=== PATIENT | female | born 1985 | race Caucasian/White ===

== ENCOUNTER 2017-06-10 18:33 | Emergency (ER) | payer BC ==
[2017-06-10 20:55] VITALS: BP 111/67
--- NOTE | 2017-06-10 20:56 | EDM.PDOC ---
ED HPI GENERAL MEDICAL PROBLEM - General Chief Complaint: Genitourinary Problem Stated Complaint: INFECTION/CLAMMY/NOT WELL Time Seen by Provider: 06/10/17 19:49 Source of Information: Reports: Patient History Limitations: Reports: No Limitations - History of Present Illness INITIAL COMMENTS - FREE TEXT/NARRATIVE: History of present illness: [This is an unfortunate 31-year-old female who is in process of being worked up at [facility] for right flank pain that radiates into her groin. This been going on for quite some time now and she does have an appointment to follow-up with them June 15 through the . The planning to do cystourogram and CT to try to continue to to investigate her problem. She has night sweats with this and just feels unwell and has moments when she has tender and lancinating pain that's in her right flank area. She's only been partially worked up and in the past as bends concerned that she is having UTIs with possible pilonidal but she's been treated for this and continues to have the pain. Most recently she was treated with minocycline and Macrobid. At this time she's not having any dysuria. 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 Past medical history: As per history of present illness and as reviewed below otherwise noncontributory. Surgical history: As per history of present illness and as reviewed below otherwise noncontributory. Social history: No reported history of drug or alcohol abuse. Family history: As per history of present illness and as reviewed below otherwise noncontributory. Physical exam: HEENT: Atraumatic, normocephalic, pupils reactive, negative for conjunctival pallor or scleral icterus, mucous membranes moist, throat clear, neck supple, nontender, trachea midline. Lungs: Clear to auscultation, breath sounds equal bilaterally, chest nontender. Heart: S1S2, regular, negative for clicks, rubs, or JVD. Abdomen: She has pain on palpation of the right flank and gutter area and along into the right lower quadrant. She does have some right-sided CVA tenderness Pelvis: Stable nontender. Genitourinary: Deferred. Rectal: Deferred. Extremities: Atraumatic, negative for cords or calf pain. Neurovascular unremarkable. Neuro: Awake, alert, oriented. Cranial nerves II through XII unremarkable. Cerebellum unremarkable. Motor and sensory unremarkable throughout. Exam nonfocal. Diagnostics: [CBC UA and complete medical panel are essentially unremarkable. She has some mild thrombocytopenia and elevation of her monocytes and eosinophils but these are all very nonspecific.] Therapeutics: [] Impression: [Right flank pain of uncertain etiology] Plan: [She will be following up in a few days at [place] for continued workup of her problem. We'll provide her with 12 [place] and I'm also going to put her on tapering doses of steroids just to see if that might help. We discussed that this is very nonspecific and that it may or may not help but it definitely does seem to help it might be helpful to [facility] to know that whatever is going on with her was steroid responsive.] Definitive disposition and diagnosis as appropriate pending reevaluation and review of above. right abdominal pain Pain Score (Numeric/FACES): 6 Past Medical History HEENT History: Reports: Impaired Vision Cardiovascular History: Reports: None Respiratory History: Reports: None Gastrointestinal History: Reports: Other (See Below) Other Gastrointestinal History: gastropathy. chronic vomiting Genitourinary History: Reports: Pyelonephritis, Renal Disease, UTI, Recurrent [employer]OR GROUNDS History: Reports: Musculoskeletal History: Reports: Fibromyalgia Neurological History: Reports: None Psychiatric History: Reports: Anxiety, Depression Endocrine/Metabolic History: Reports: None Hematologic History: Reports: None Immunologic History: Reports: None Oncologic (Cancer) History: Reports: None Dermatologic History: Reports: None - Infectious Disease History Infectious Disease History: Reports: Chicken Pox - Past Surgical History Head Surgeries/Procedures: Reports: None HEENT Surgical History: Reports: None Cardiovascular Surgical History: Reports: None Respiratory Surgical History: Reports: None GI Surgical History: Reports: Lysis of Adhesions Female Surgical History: Reports: Section, Cystectomy, Hysterectomy , Other (See Below) Other Female Surgeries/Procedures: reimplantation of bilateral ureters. uretral pelvic junction repair. pyeloplasty. removal of tissue from bladder. removal of right ovary, right and left falopian tubes, Patient still has left ovary Endocrine Surgical History: Reports: None Neurological Surgical History: Reports: None Musculoskeletal Surgical History: Reports: None Oncologic Surgical History: Reports: None Dermatological Surgical History: Reports: None Social & Family History - Tobacco Use Smoking Status *Q: Current Every Day Smoker Years of Tobacco use: 21 Packs/Tins Daily: 0.2 - Caffeine Use Caffeine Use: Reports: Coffee, Soda, Tea - Recreational Drug Use Recreational Drug Use: No ED ROS GENERAL - Review of Systems Review Of Systems: ROS reveals no pertinent complaints other than HPI. ED EXAM, GENERAL - Physical Exam Exam: See Below Course - Vital Signs Last Recorded V/S: Last Vital Signs Temp 37.3 C 06/10/17 19:38 Pulse 74 06/10/17 19:38 Resp 18 06/10/17 19:38 BP 140/76 06/10/17 19:38 Pulse Ox 100 06/10/17 19:38 - Orders/Labs/Meds Orders: Active Orders 24 hr Category Date Time Status CULTURE URINE [RM] Stat Lab 06/10/17 20:33 Uncollected Labs: Laboratory Tests 06/10/17 06/10/17 06/10/17 Range/Units 19:49 19:49 20:08 WBC 6.2 (4.5-11.0) K/uL RBC 4.22 (3.30-5.50) M/uL Hgb 12.7 (12.0-15.0) g/dL Hct 38.6 (36.0-48.0) % MCV 92 (80-98) fL MCH 30 (27-31) pg MCHC 33 (32-36) % Plt Count 140 L (150-400) K/uL Neut % (Auto) 62 (36-66) % Lymph % (Auto) 24 (24-44) % [place] % (Auto) 8 H (2-6) % Eos % (Auto) 6 H (2-4) % Baso % (Auto) 1 (0-1) % Sodium 139 L (140-148) mmol/L Potassium 3.9 (3.6-5.2) mmol/L Chloride 106 (100-108) mmol/L Carbon Dioxide 26 (21-32) mmol/L Anion Gap 10.9 (5.0-14.0) mmol/L BUN 12 (7-18) mg/dL Creatinine 1.0 (0.6-1.0) mg/dL Est Cr Clr Drug Dosing 74.91 mL/min Estimated GFR (MDRD) > 60 (>60) Glucose 87 (74-106) mg/dL Calcium 8.5 (8.5-10.1) mg/dL Total Bilirubin 0.4 (0.2-1.0) mg/dL AST 19 (15-37) U/L ALT 30 (12-78) U/L Alkaline Phosphatase 79 (46-116) U/L Total Protein 7.0 (6.4-8.2) g/dL Albumin 3.4 (3.4-5.0) g/dL Globulin 3.6 H (2.3-3.5) g/dL Albumin/Globulin Ratio 0.9 L (1.2-2.2) Urine Color Yellow Urine Appearance Clear Urine pH 6.0 (4.5-8.0) Ur Specific [place] 1.010 (1.008-1.030) Urine Protein Negative (NEGATIVE) mg/dL Urine Glucose (UA) Normal (NEGATIVE) mg/dL Urine Ketones Negative (NEGATIVE) mg/dL Urine Occult Blood Negative (NEGATIVE) Urine Nitrite Negative (NEGATIVE) Urine Bilirubin Negative (NEGATIVE) Urine Urobilinogen Normal (NORMAL) mg/dL Ur Leukocyte Esterase Negative (NEGATIVE) Urine RBC 0-5 (0-5) Urine WBC 0-5 (0-5) Ur Epithelial Cells Rare Amorphous Sediment Rare Urine Bacteria Not seen Urine Mucus Few Departure - Departure Time of Disposition: 20:55 Disposition: Home, Self-Care 01 Condition: Fair Clinical Impression: Right flank pain - Discharge Information Referrals: Skip Erickson MD [Primary Care Provider] - Additional Instructions: I'm sorry that you having this problem but I'm glad that sure being worked up at [place]. We will provide you with the pain medication and the steroids as we discussed with the understanding that the steroids may or may not help you at all but it I think at this point might be worth a trial. If it definitely seems to help you then you need to let your mail Dr. Jung that steroids helped your pain. This might help them in the process of trying to narrow things down and figure out what's going on causing her pain. - My Orders Last 24 Hours: My Active Orders 06/10/17 20:33 CULTURE URINE [RM] Stat - Assessment/Plan Last 24 Hours: My Active Orders 06/10/17 20:33 CULTURE URINE [RM] Stat
== END 2017-06-10 21:26 | disposition home or self-care (01) ==
LOC: JP.ED 18:33
DX: R10.9 Unspecified abdominal pain (principal); F17.210 Nicotine dependence, cigarettes, uncomplicated; Z87.440 Personal history of urinary (tract) infections; Z90.721 Acquired absence of ovaries, unilateral; Z98.890 Other specified postprocedural states
CPT/HCPCS: 36415; 80053; 81001; 85025; 87086; 99284

== ENCOUNTER 2017-06-11 13:13 | Emergency (ER) | payer BC ==
[2017-06-11] MEDS ORDERED: Sodium Chloride 0.9% 10 ML Syringe FLUSH PRN (14:50)
[2017-06-11] MEDS ORDERED: Ketorolac 30 MG/ML SDV IVPUSH ONE (14:50)
--- NOTE | 2017-06-11 14:56 | EDM.PDOC ---
ED HPI GENERAL MEDICAL PROBLEM - General Chief Complaint: Gastrointestinal Problem Stated Complaint: ABDOMNAL SORENESS; WEAKNESS Time Seen by Provider: 06/11/17 14:45 Source of Information: Reports: Patient History Limitations: Reports: No Limitations - History of Present Illness INITIAL COMMENTS - FREE TEXT/NARRATIVE: Zahida is a 31-year-old female who presents to the emergency department today with complaints of left upper quadrant pain. Patient reports that the pain is intense at times and feels like her insides are being ripped out. Patient has had a long-standing history of right flank pain and right abdominal pain which she has been worked up extensively for at [facility] with really no acute pathology found. Patient was seen at their facility on June 09 where blood work, urinalysis and renal stone CT scan were done which were all unremarkable. The patient was evaluated here yesterday as she felt she was being treated poorly at [facility], she was evaluated and discharged with a course of steroids to see if this helps the possibility of any inflammatory component. Patient does doctor at [facility] secondary to the fact that she has no clear answer for her pain, she has a follow-up appointment there on the . Patient reports the left upper quadrant pain started yesterday. Patient denies any fever or chills. Patient reports that today the severe pain is gone but she does endorse feeling "sore". Patient has not had any vomiting today.patient had a hysterectomy back in 2010, she reports a history of significant endometriosis prior to that. - Related Data Allergies Allergy/AdvReac Type Severity Reaction Status Date / Time ciprofloxacin [From Cipro] Allergy Numbness Verified 06/10/17 20:54 levofloxacin [From Levaquin] Allergy Numbness Verified 06/10/17 20:54 morphine Allergy Rash Verified 06/10/17 20:54 Sulfa (Sulfonamide Allergy Tachycardia Verified 06/10/17 20:54 Antibiotics) sulfamethoxazole Allergy Tachycardia Verified 06/10/17 20:54 [From Bactrim] tramadol Allergy Itching Verified 06/10/17 20:54 trimethoprim [From Bactrim] Allergy Tachycardia Verified 06/10/17 20:54 Home Meds: Home Meds Hydrocodone/Acetaminophen [Hydrocodon-Acetaminophen 5-325] 06/11/17 [History] predniSONE [Prednisone] 06/11/17 [History] Past Medical History HEENT History: Reports: Impaired Vision Cardiovascular History: Reports: None Respiratory History: Reports: None Gastrointestinal History: Reports: Other (See Below) Other Gastrointestinal History: gastropathy. 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: Musculoskeletal History: Reports: Fibromyalgia Neurological History: Reports: None Psychiatric History: Reports: Anxiety, Depression Endocrine/Metabolic History: Reports: None Hematologic History: Reports: None Immunologic History: Reports: None Oncologic (Cancer) History: Reports: None Dermatologic History: Reports: None - Infectious Disease History Infectious Disease History: Reports: Chicken Pox - Past Surgical History Head Surgeries/Procedures: Reports: None HEENT Surgical History: Reports: None Cardiovascular Surgical History: Reports: None Respiratory Surgical History: Reports: None GI Surgical History: Reports: Lysis of Adhesions Female Surgical History: Reports: Section, Cystectomy, Hysterectomy , Other (See Below) Other Female Surgeries/Procedures: reimplantation of bilateral ureters. uretral pelvic junction repair. pyeloplasty. removal of tissue from bladder. removal of right ovary, right and left falopian tubes, Patient still has left ovary Endocrine Surgical History: Reports: None Neurological Surgical History: Reports: None Musculoskeletal Surgical History: Reports: None Oncologic Surgical History: Reports: None Dermatological Surgical History: Reports: None Social & Family History - Tobacco Use Smoking Status *Q: Current Every Day Smoker Years of Tobacco use: 20 Packs/Tins Daily: 0.1 - Caffeine Use Caffeine Use: Reports: Coffee, Soda, Tea - Recreational Drug Use Recreational Drug Use: No ED ROS GENERAL - Review of Systems Review Of Systems: See Below Constitutional: Reports: Decreased Appetite HEENT: Reports: No Symptoms Respiratory: Reports: No Symptoms Cardiovascular: Reports: No Symptoms Endocrine: Reports: No Symptoms GI/Abdominal: Reports: Abdominal Pain, Anorexia, Nausea : Reports: Flank Pain Musculoskeletal: Reports: Back Pain Skin: Reports: No Symptoms Neurological: Reports: No Symptoms Psychiatric: Reports: No Symptoms Hematologic/Lymphatic: Reports: No Symptoms Immunologic: Reports: No Symptoms ED EXAM, GI/ABD - Physical Exam Exam: See Below Exam Limited By: No Limitations General Appearance: Alert, WD/WN, Anxious Throat/Mouth: Normal Inspection Head: Atraumatic Neck: Normal Inspection Respiratory/Chest: No Respiratory Distress, Lungs Clear, Normal Breath Sounds, No Accessory Muscle Use Cardiovascular: Normal Peripheral Pulses, Regular Rate, Rhythm, No Murmur GI/Abdominal Exam: Normal Bowel Sounds, Soft, No Distention, Tender (LUQ) Back Exam: Normal Inspection Extremities: Normal Inspection, Normal Range of Motion Neurological: Alert, Oriented, CN II-XII Intact Course - Vital Signs Last Recorded V/S: Last Vital Signs Temp 37.4 C 06/11/17 15:22 Pulse 69 06/11/17 15:22 Resp 16 06/11/17 15:22 BP 125/75 06/11/17 15:22 Pulse Ox 98 06/11/17 15:22 Zahida is a 31-year-old female with ongoing issues with abdominal pain. Patient has been evaluated for this now multiple times at [facility] and now our facility.patient has a follow-up appointment at [place] in the next week. workup today is negative for any acute findings which is consistent with the patient's prior workups. CBC, CMP, lipase are within normal limits. CT scan with contrast of abdomen and pelvis does not show any acute abnormalities to explain patient's left upper quadrant pain today. I did not repeat a urine sample today as patient has had several of these done over the last week. I feel patient is stable to be discharged home she can follow up with her appointment as scheduled, she can continue previously prescribed medications.I did discuss with patient the fact that she has had multiple CT scans, risks/ benefits were discussed with patient today, she did verbalize she wanted to proceed to make sure "nothing was wrong". I did reiterate to patient that multiple CT scans put her at higher risk for developing an acute intra- abdominal oncological process from repeated radiation exposure. Patient verbalizes understanding of this, reasons to return to the ED were discussed. Patient was agreeable discharged in stable condition. - Orders/Labs/Meds Orders: Active Orders 24 hr Category Date Time Status Peripheral IV Care [RC] . DIRECTED Care 06/11/17 14:50 Active Abdomen Pelvis w Cont [CT] Stat Exams 06/11/17 14:50 Taken Iopamidol [Isovue-300 (61%)] Med 06/11/17 15:32 Active 126 ml IV . DIRECTED PRN Sodium Chloride 0.9% [Normal Saline] 80 ml Med 06/11/17 15:45 Active IV ASDIRECTED Sodium Chloride 0.9% [Saline Flush] Med 06/11/17 14:50 Active 10 ml FLUSH ASDIRECTED PRN Peripheral IV Insertion Adult [OM.PC] Routine Oth 06/11/17 14:50 Ordered Medication Orders Sodium Chloride (Normal Saline) 80 mls @ 3.5 mls/sec IV ASDIRECTED ZANE Last Admin: 06/11/17 15:44 Dose: 3.5 mls/sec Iopamidol (Isovue-300 (61%)) 126 ml IV . DIRECTED PRN PRN Reason: RADIOLOGY EXAM Stop: 06/12/17 15:33 Last Admin: 06/11/17 15:44 Dose: 126 ml Sodium Chloride (Saline Flush) 10 ml FLUSH ASDIRECTED PRN PRN Reason: Keep Vein Open Last Admin: 06/11/17 15:21 Dose: 10 ml Labs: Laboratory Tests 06/11/17 06/11/17 Range/Units 15:02 15:02 WBC 10.0 (4.5-11.0) K/uL RBC 4.26 (3.30-5.50) M/uL Hgb 12.8 (12.0-15.0) g/dL Hct 39.2 (36.0-48.0) % MCV 92 (80-98) fL MCH 30 (27-31) pg MCHC 33 (32-36) % Plt Count 162 (150-400) K/uL Neut % (Auto) 74 H (36-66) % Lymph % (Auto) 17 L (24-44) % [place] % (Auto) 8 H (2-6) % Eos % (Auto) 2 (2-4) % Baso % (Auto) 0 (0-1) % Sodium 141 (140-148) mmol/L Potassium 3.7 (3.6-5.2) mmol/L Chloride 108 (100-108) mmol/L Carbon Dioxide 27 (21-32) mmol/L Anion Gap 5.7 (5.0-14.0) mmol/L BUN 11 (7-18) mg/dL Creatinine 1.1 H (0.6-1.0) mg/dL Est Cr Clr Drug Dosing TNP Estimated GFR (MDRD) 57 L (>60) Glucose 107 H (74-106) mg/dL Calcium 8.5 (8.5-10.1) mg/dL Total Bilirubin 0.2 (0.2-1.0) mg/dL AST 17 (15-37) U/L ALT 29 (12-78) U/L Alkaline Phosphatase 96 (46-116) U/L Total Protein 7.4 (6.4-8.2) g/dL Albumin 3.5 (3.4-5.0) g/dL Globulin 3.9 H (2.3-3.5) g/dL Albumin/Globulin Ratio 0.9 L (1.2-2.2) Lipase 106 (73-393) U/L Meds: Medications Generic Name Dose Route Start Last Admin Trade Name Freq PRN Reason Stop Dose Admin Sodium Chloride 80 mls @ 3.5 mls/sec 06/11/17 15:45 06/11/17 15:44 Normal Saline IV 3.5 mls/sec ASDIRECTED ZANE Administration Iopamidol 126 ml 06/11/17 15:32 06/11/17 15:44 Isovue-300 (61%) IV 06/12/17 15:33 126 ml . DIRECTED PRN Administration RADIOLOGY EXAM Sodium Chloride 10 ml 06/11/17 14:50 06/11/17 15:21 Saline Flush FLUSH 10 ml ASDIRECTED PRN Administration Keep Vein Open Discontinued Medications Generic Name Dose Route Start Last Admin Trade Name Pepitoq PRN Reason Stop Dose Admin Ketorolac Tromethamine 30 mg 06/11/17 14:50 06/11/17 15:20 Toradol IVPUSH 06/11/17 14:51 30 mg ONETIME ONE Administration Sodium Chloride 10 ml 06/11/17 15:32 06/11/17 15:43 Saline Flush FLUSH 06/11/17 15:33 10 ml ONETIME ONE Administration Departure - Departure Time of Disposition: 17:00 Disposition: Home, Self-Care 01 Condition: Good Clinical Impression: Left upper quadrant abdominal pain of unknown etiology - Discharge Information Referrals: Skip Erickson MD [Primary Care Provider] - Forms: ED Department Discharge Additional Instructions: Continue medications as previously prescribed. Follow-up at her clinic appointment with [facility] as scheduled Take care and good luck with everything. - My Orders Last 24 Hours: My Active Orders 06/11/17 14:50 Peripheral IV Care [RC] . DIRECTED Abdomen Pelvis w Cont [CT] Stat Sodium Chloride 0.9% [Saline Flush] 10 ml FLUSH ASDIRECTED PRN Peripheral IV Insertion Adult [OM.PC] Routine 06/11/17 15:32 Iopamidol [Isovue-300 (61%)] 126 ml IV . DIRECTED PRN 06/11/17 15:45 Sodium Chloride 0.9% [Normal Saline] 80 ml IV ASDIRECTED - Assessment/Plan Last 24 Hours: My Active Orders 06/11/17 14:50 Peripheral IV Care [RC] . DIRECTED Abdomen Pelvis w Cont [CT] Stat Sodium Chloride 0.9% [Saline Flush] 10 ml FLUSH ASDIRECTED PRN Peripheral IV Insertion Adult [OM.PC] Routine 06/11/17 15:32 Iopamidol [Isovue-300 (61%)] 126 ml IV . DIRECTED PRN 06/11/17 15:45 Sodium Chloride 0.9% [Normal Saline] 80 ml IV ASDIRECTED
[2017-06-11 15:23] VITALS: BP 125/75
[2017-06-11] MEDS ORDERED: Iopamidol 612 MG/ML 150 ML Bottle IV PRN (15:32)
[2017-06-11] MEDS ORDERED: Sodium Chloride 0.9% 10 ML Syringe FLUSH ONE (15:32)
[2017-06-11] MEDS ORDERED: Sodium Chloride 0.9% 80 ML IV SCH (15:45)
== END 2017-06-11 16:50 | disposition home or self-care (01) ==
LOC: JP.ED 13:13
DX: R10.12 Left upper quadrant pain (principal); F17.210 Nicotine dependence, cigarettes, uncomplicated; Z87.440 Personal history of urinary (tract) infections; Z88.5 Allergy status to narcotic agent; Z88.1 Allergy status to other antibiotic agents; Z90.710 Acquired absence of both cervix and uterus; Z98.890 Other specified postprocedural states; Z88.2 Allergy status to sulfonamides
CPT/HCPCS: 36415; 74177; 80053; 83690; 85025; 96374; 99285; J1885; J7030; J7050

== ENCOUNTER 2017-12-17 13:55 | Emergency (ER) | payer BC ==
[2017-12-17 14:18] VITALS: BP 141/96
--- NOTE | 2017-12-17 14:32 | EDM.PDOC ---
ED HPI GENERAL MEDICAL PROBLEM - General Chief Complaint: Fever Stated Complaint: FATIGUE/ILL Time Seen by Provider: 12/17/17 14:32 Source of Information: Reports: Patient History Limitations: Reports: No Limitations - History of Present Illness INITIAL COMMENTS - FREE TEXT/NARRATIVE: 32-year-old female, generalized illness for the last 4 days including night sweats, intermittent fevers, generalized achiness and fatigue. She was treated for strep throat 3 weeks ago, thought she had it completely treated. She has no specific symptoms such as nasal congestion, significant sore throat, shortness of breath, rash, dysuria, or GI symptoms. She does have a dry cough, mainly she is just very tired and ill feeling. Onset: Gradual Severity: Mild Associated Symptoms: Reports: Cough (Dry cough), Fever/Chills, Headaches ( Headache this morning), Malaise, Weakness. Denies: Chest Pain - Related Data Allergies Allergy/AdvReac Type Severity Reaction Status Date / Time ciprofloxacin [From Cipro] Allergy Numbness Verified 12/17/17 14:06 levofloxacin [From Levaquin] Allergy Numbness Verified 12/17/17 14:06 morphine Allergy Rash Verified 12/17/17 14:06 Sulfa (Sulfonamide Allergy Tachycardia Verified 12/17/17 14:06 Antibiotics) sulfamethoxazole Allergy Tachycardia Verified 12/17/17 14:06 [From Bactrim] tramadol Allergy Itching Verified 12/17/17 14:06 trimethoprim [From Bactrim] Allergy Tachycardia Verified 12/17/17 14:06 Home Meds: Home Meds DULoxetine [Cymbalta] 1 tab PO DAILY 12/17/17 [History] Gabapentin [Neurontin] 1 tab PO TID 12/17/17 [History] Ondansetron [Zofran ODT] 1 tab PO TID PRN 12/17/17 [History] Prazosin HCl [Prazosin] 2 tab PO BEDTIME 12/17/17 [History] Promethazine [Phenergan] 1 tab PO BEDTIME 12/17/17 [History] QUEtiapine [SEROquel] 1 tab PO BEDTIME 12/17/17 [History] buPROPion [Wellbutrin SR] 4 tab PO DAILY 12/17/17 [History] Past Medical History HEENT History: Reports: Impaired Vision Cardiovascular History: Reports: None Respiratory History: Reports: None Gastrointestinal History: Reports: Other (See Below) Other Gastrointestinal History: gastropathy. chronic vomiting Genitourinary History: Reports: Pyelonephritis, Renal Disease, UTI, Recurrent [employer] History: Reports: Musculoskeletal History: Reports: Fibromyalgia Neurological History: Reports: None Psychiatric History: Reports: Anxiety, Depression Endocrine/Metabolic History: Reports: None Hematologic History: Reports: None Immunologic History: Reports: None Oncologic (Cancer) History: Reports: None Dermatologic History: Reports: None - Infectious Disease History Infectious Disease History: Reports: Chicken Pox - Past Surgical History Head Surgeries/Procedures: Reports: None HEENT Surgical History: Reports: None Cardiovascular Surgical History: Reports: None Respiratory Surgical History: Reports: None GI Surgical History: Reports: Lysis of Adhesions Female Surgical History: Reports: Section, Cystectomy, Hysterectomy , Other (See Below) Other Female Surgeries/Procedures: reimplantation of bilateral ureters. uretral pelvic junction repair. pyeloplasty. removal of tissue from bladder. removal of right ovary, right and left falopian tubes, Patient still has left ovary Endocrine Surgical History: Reports: None Neurological Surgical History: Reports: None Musculoskeletal Surgical History: Reports: None Oncologic Surgical History: Reports: None Dermatological Surgical History: Reports: None Social & Family History - Tobacco Use Smoking Status *Q: Never Smoker Years of Tobacco use: 20 Packs/Tins Daily: 0.1 - Caffeine Use Caffeine Use: Reports: Coffee, Soda, Tea - Recreational Drug Use Recreational Drug Use: No ED ROS GENERAL - Review of Systems Review Of Systems: See Below Constitutional: Reports: Fever, Chills, Malaise, Weakness Respiratory: Reports: Cough. Denies: Shortness of Breath GI/Abdominal: Reports: No Symptoms : Reports: No Symptoms Psychiatric: Reports: No Symptoms ED EXAM, GENERAL - Physical Exam Exam: See Below Exam Limited By: No Limitations General Appearance: Alert, No Apparent Distress Ears: Normal TMs Throat/Mouth: Normal Inspection Head: Atraumatic Respiratory/Chest: No Respiratory Distress, Lungs Clear Cardiovascular: Regular Rate, Rhythm Neurological: Alert, Oriented Skin Exam: Warm, Dry Course - Vital Signs Last Recorded V/S: Last Vital Signs Temp 98.8 F 12/17/17 14:17 Pulse 93 12/17/17 14:17 Resp 14 12/17/17 14:17 BP 141/96 H 12/17/17 14:17 Pulse Ox 98 12/17/17 14:17 - Orders/Labs/Meds Orders: Active Orders 24 hr Category Date Time Status CULTURE STREP A CONFIRMATION [RM] Routine Lab 12/17/17 14:39 Results STREP SCRN A RAPID W CULT CONF [RM] Routine Lab 12/17/17 14:39 Results Labs: Laboratory Tests 12/17/17 12/17/17 12/17/17 Range/Units 14:54 14:54 15:49 WBC 7.4 (4.5-11.0) K/uL RBC 4.75 (3.30-5.50) M/uL Hgb 14.1 (12.0-15.0) g/dL Hct 43.4 (36.0-48.0) % MCV 91 (80-98) fL MCH 30 (27-31) pg MCHC 33 (32-36) % Plt Count 203 (150-400) K/uL Neut % (Auto) 70 H (36-66) % Lymph % (Auto) 20 L (24-44) % Hall % (Auto) 5 (2-6) % Eos % (Auto) 4 (2-4) % Baso % (Auto) 0 (0-1) % Sodium 143 (140-148) mmol/L Potassium 3.9 (3.6-5.2) mmol/L Chloride 105 (100-108) mmol/L Carbon Dioxide 29 (21-32) mmol/L Anion Gap 9.5 (5.0-14.0) mmol/L BUN 13 (7-18) mg/dL Creatinine 0.9 (0.6-1.0) mg/dL Est Cr Clr Drug Dosing 82.45 mL/min Estimated GFR (MDRD) > 60 (>60) Glucose 93 (74-106) mg/dL Calcium 8.9 (8.5-10.1) mg/dL Total Bilirubin 0.3 (0.2-1.0) mg/dL AST 18 (15-37) U/L ALT 26 (12-78) U/L Alkaline Phosphatase 81 (46-116) U/L Total Protein 7.9 (6.4-8.2) g/dL Albumin 4.1 (3.4-5.0) g/dL Globulin 3.8 H (2.3-3.5) g/dL Albumin/Globulin Ratio 1.1 L (1.2-2.2) Urine Color Yellow Urine Appearance Clear Urine pH 6.0 (4.5-8.0) Ur Specific [place] 1.015 (1.008-1.030) Urine Protein Negative (NEGATIVE) mg/dL Urine Glucose (UA) Normal (NEGATIVE) mg/dL Urine Ketones Negative (NEGATIVE) mg/dL Urine Occult Blood Negative (NEGATIVE) Urine Nitrite Negative (NEGATIVE) Urine Bilirubin Negative (NEGATIVE) Urine Urobilinogen Normal (NORMAL) mg/dL Ur Leukocyte Esterase Negative (NEGATIVE) Urine RBC Not seen (0-5) Urine WBC 0-5 (0-5) Ur Epithelial Cells Rare Amorphous Sediment Not seen Urine Bacteria Rare Urine Mucus Not seen - Re-Assessments/Exams Free Text/Narrative Re-Assessment/Exam: 12/17/17 14:43 Rapid strep was obtained, influenza antigens obtained, CBC and CMP. 12/17/17 16:07 all labs were negative. Patient likely has a viral syndrome that will resolve without treatment. Departure - Departure Time of Disposition: 16:16 Disposition: Home, Self-Care 01 Condition: Good Clinical Impression: Viral syndrome - Discharge Information Instructions: Viral Illness, Adult Referrals: Skip Erickson MD [Primary Care Provider] - Forms: ED Department Discharge Care Plan Goals: Rest, fluids, ibuprofen or naproxen on a regular basis and increase diet and activity as tolerated. Consider rechecking in 3-4 days if not improving satisfactorily, or return if worsening such as increasing shortness of breath or vomiting. - My Orders Last 24 Hours: My Active Orders 12/17/17 14:39 CULTURE STREP A CONFIRMATION [RM] Routine STREP SCRN A RAPID W CULT CONF [RM] Routine - Assessment/Plan Last 24 Hours: My Active Orders 12/17/17 14:39 CULTURE STREP A CONFIRMATION [RM] Routine STREP SCRN A RAPID W CULT CONF [RM] Routine
== END 2017-12-17 16:15 | disposition home or self-care (01) ==
LOC: JP.ED 13:55
DX: B34.9 Viral infection, unspecified (principal); F41.9 Anxiety disorder, unspecified; F32.9 Major depressive disorder, single episode, unspecified; Z79.899 Other long term (current) drug therapy; Z88.1 Allergy status to other antibiotic agents; Z88.2 Allergy status to sulfonamides; Z88.5 Allergy status to narcotic agent
CPT/HCPCS: 36415; 80053; 81001; 85025; 87081; 87430; 87804; 99284